=== PATIENT | male | born 1960 | race Caucasian/White ===

== ENCOUNTER 2022-12-27 20:11 | Emergency (ER) | payer OTHER ==
--- NOTE | 2022-12-27 20:45 | ED Physician Documentation ---
PD HPI CHEST PAIN - Stated complaint Stated Complaint: IRREGULAR HR - Chief complaint Chief Complaint: Cardiac - History obtained from History obtained from: Patient, Family () - History of Present Illness Timing - onset: Enter time (1931), Today Timing - onset during: Rest (at computer) Timing - duration: Minutes Timing - details: Abrupt onset, Still present Quality: Aching Location: Left shoulder/arm Radiation: No: Jaw, Neck, Back, Abdominal, Left upper extremity, Right upper extremity Improved by: Nothing Worsened by: Palpation Associated symptoms: Shortness of air, Diaphoresis, Nausea, Palpitations. 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 He states he developed this pain subsequently developed some diaphoresis and nausea did not felt well and consulted his . She came and listened to his heart and stated that she felt he had a third sound and recommended he come to the emergency department. The patient has a family history of early coronary disease with his father having a heart attack at 63. The patient has not seen a physician in over 3 years is not on any medications denies having any history of diabetes. He does have some problem with his left shoulder with pain when he lays on it at night. He believes he has been adequately hydrated and indicates that he mostly drinks coffee during the day. He has never had echocardiogram or stress test done. 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 He believes he has exertional dyspnea that has worsened over the past year. Review of Systems Constitutional: reports: Sweats. denies: Fever, Chills, Myalgias, Fatigue Eyes: denies: Decreased vision Nose: denies: Congestion Throat: denies: Sore throat Cardiac: reports: Palpitations. denies: Chest pain / pressure, Pedal edema, Calf pain Respiratory: reports: Dyspnea. denies: Cough, Wheezing GI: denies: Abdominal Pain, Nausea, Vomiting, Constipation, Diarrhea : denies: Dysuria, Frequency Skin: denies: Rash Musculoskeletal: reports: Extremity pain, Joint pain (left shoulder hurts at night and randomly). denies: Neck pain, Back pain PD PAST MEDICAL HISTORY - Past Medical History Psych: Depression - Past Surgical History Past Surgical History: No - Present Medications Home Medications: Ambulatory Orders Medication Instructions Recorded Confirmed Melatonin [Melatoninmax] 10 mg PO HS PRN 12/27/22 12/27/22 - Allergies Allergies/Adverse Reactions: Allergies Allergy/AdvReac Type Severity Reaction Status Date / Time bacitracin Allergy Rash Verified 12/27/22 20:18 [From Neosporin ([id number])] bacitracin zinc * Allergy Rash Verified 12/27/22 20:18 [From Neosporin ([id number])] neomycin sulfate * Allergy Rash Verified 12/27/22 20:18 [From Neosporin ([id number])] polymyxin B Allergy Rash Verified 12/27/22 20:18 [From Neosporin ([id number])] - Social History Does the pt smoke?: No Smoking Status: Never smoker Does the pt drink ETOH?: Yes Does the pt have substance abuse?: No PD ED PE NORMAL - Vitals Vital signs reviewed: Yes (hypertensive ) - General General: Alert and oriented X 3, No acute distress, Well developed/nourished - HEENT HEENT: Atraumatic, PERRL, EOMI - Neck Neck: Supple, no meningeal sign, No bony TTP - Cardiac Cardiac: RRR, No murmur - Respiratory Respiratory: No respiratory distress, Clear bilaterally - Abdomen Abdomen: Soft, Non tender - Back Back: No CVA TTP, No spinal TTP - Derm Derm: Normal color, Warm and dry, No rash - Extremities Extremities: No deformity, Normal ROM s pain, No edema - Neuro Neuro: Alert and oriented X 3, billing analyst 2-12 intact, No motor deficit, No sensory deficit, Normal speech Eye Opening: Spontaneous Motor: Obeys Commands Verbal: Oriented GCS Score: 15 - Psych Psych: Normal mood, Normal affect Results - Vitals Vitals: Vital Signs - 24 hr 12/27/22 12/27/22 12/27/22 20:15 21:20 21:41 Temperature 36.5 C 36.5 C 36.5 C Heart Rate 93 82 76 Respiratory 16 14 23 Rate Blood Pressure 186/117 H 175/111 H 173/102 H O2 Saturation 95 97 99 12/27/22 12/27/22 12/27/22 22:00 22:30 23:28 Temperature Heart Rate 78 80 77 Respiratory 20 20 16 Rate Blood Pressure 175/120 H 164/116 H 157/102 H O2 Saturation 99 98 96 Oxygen O2 Source Room air - EKG (time done) 2024 EKG releavant findings:: EKG personally interpreted by author of this note. Relevant findings are: Rate: Rate (enter#) (94) Rhythm: NSR, LAE Intervals: Other (early transition) QRS: LVH Compare to prior EKG: Changed from prior EKG (SPT 12-29-2014 prolonged QT has resolved. LVH has developed. ) Computer interpretation: Agree with computer - Labs Labs: Laboratory Tests 12/27/22 12/27/22 12/27/22 20:33 20:33 20:38 WBC 9.0 RBC 5.12 Hgb 15.5 Hct 45.5 MCV 88.9 MCH 30.3 MCHC 34.1 RDW 12.4 Plt Count 201 MPV 11.1 Neut # (Auto) 5.4 Lymph # (Auto) 2.7 Dixie # (Auto) 0.6 Eos # (Auto) 0.3 Baso # (Auto) 0.1 Absolute Nucleated RBC 0.00 Nucleated RBC % 0.0 D-Dimer < 200.0 L Sodium 137 Potassium 4.3 Chloride 105 Carbon Dioxide 26 Anion Gap 6.0 BUN 14 Creatinine 1.0 Estimated GFR (MDRD) 75 L Glucose 98 Calcium 9.2 Total Bilirubin 0.7 AST 26 ALT 30 Alkaline Phosphatase 77 Troponin I High Sens 54.6 H* Total Protein 7.2 Albumin 4.3 Globulin 2.9 Albumin/Globulin Ratio 1.5 Lipase 41 - Rads (name of study) chest Relevant Findings:: Prelim report reviewed (Impression: No acute cardiopulmonary disease.), EMP independent interpretation of test Procedures - IVC sono (time) 2039 Bedside IVC sono: IVC measures (cm) (1.14), IVC collapsed c insp (cm) (complete), Dehydration (est 1+ liter deficit) PD Medical Decision Making - ED course Complexity details: reviewed old records, reviewed results, re-evaluated patient, considered differential, d/w patient, d/w family, d/w qa consultant (Dr. Georges the hospitalist at [facility] excepted the patient in transfer.) Reviewed Lab Results: We reviewed a complete blood count showing a normal white blood cell count normal hemoglobin hematocrit and platelets a D-dimer was negative the chemistries showed normal electrolytes normal kidney and liver function and the high-sensitivity troponin was elevated at 54.6. My interpretation of these benign-appearing laboratory results with the exception of the elevated sensitive troponin is: the patient has had an NSTEMI. ED course: 62-year-old Champ Moreira presented to the emergency department today with left shoulder pain and a nonischemic appearing electrocardiogram. He has a story compelling for coronary disease with a family history positive for early coronary disease, a story and himself of progressive exertional dyspnea. On physical examination he was found to be dehydrated on interrogation of the inferior vena cava cava with POCUS. I suspect this patient's dehydration has uncovered his lesion. We were able to reach out to our [facility] and found that [facility] has a bed available and I was able to consult with Dr. Goodwin who accepts the patient in transfer. Here in the emergency department the patient is treated with 300 mg of Plavix orally he is already taken aspirin orally he is given 5 mg of metoprolol intravenously and started on a heparin drip after bolus. Departure - Departure Disposition: 02 Transfer Acute Care Hosp Clinical Impression: NSTEMI (non-ST elevated myocardial infarction), Dehydration Hypertension Qualifiers: Hypertension type: unspecified Qualified Code(s): I10 - Essential (primary) hypertension Forms: PCP List Discharge Date/Time: 12/27/22 23:24
[2022-12-27] MEDS ORDERED: SODIUM CHLORIDE 0.9% 1,000 ML IV STA (20:49)
[2022-12-27 20:51] LABS: BASOPHILS # (AUTO) 0.1 10^3/uL (0.0-0.1); BASOPHILS % (AUTO) 0.7 %; EOSINOPHILS # (AUTO) 0.3 10^3/uL (0.0-0.7); EOSINOPHILS % (AUTO) 3.2 %; HCT - HEMATOCRIT 45.5 % (42.0-52.0); HGB - HEMOGLOBIN 15.5 g/dL (14.0-18.0); LYMPHOCYTES # (AUTO) 2.7 10^3/uL (1.5-3.5); LYMPHOCYTES % (AUTO) 29.9 %; MEAN CORPUSCULAR HEMOGLOBIN 30.3 pg (27.0-31.0); MEAN CORPUSCULAR HGB CONC 34.1 g/dL (32.0-36.0); MEAN CORPUSCULAR VOLUME 88.9 fL (80.0-94.0); MEAN PLATELET VOLUME 11.1 fL (7.4-11.4); MONOCYTES # (AUTO) 0.6 10^3/uL (0.0-1.0); MONOCYTES % (AUTO) 6.4 %; NEUTROPHILS # (AUTO) 5.4 10^3/uL (1.5-6.6); NEUTROPHILS % (AUTO) 59.4 %; PLT - PLATELET COUNT 201 10^3/uL (130-450); RED BLOOD COUNT 5.12 10^6/uL (4.70-6.10); RED CELL DISTRIBUTION WIDTH 12.4 % (12.0-15.0)
[2022-12-27 21:11] LABS: ALBUMIN 4.3 g/dL (3.2-5.5); ALBUMIN/GLOBULIN RATIO 1.5 (1.0-2.2); BILIRUBIN,TOTAL 0.7 mg/dL (0.2-1.0); CALCIUM 9.2 mg/dL (8.5-10.3); POTASSIUM 4.3 mmol/L (3.5-5.0); TOTAL PROTEIN 7.2 g/dL (6.7-8.2)
[2022-12-27 21:14] LABS: TROPONIN I HIGH SENSITIVITY 54.6 ng/L (2.3-19.7)
[2022-12-27] MEDS ORDERED: CLOPIDOGREL 300 MG TABLET PO STA (21:19)
[2022-12-27] MEDS ORDERED: METOPROLOL 5 MG/5 ML VIAL IVP STA (21:19)
--- NOTE | 2022-12-27 21:28 | XRAY Report ---
PROCEDURE: Chest 1 View X-Ray INDICATIONS: Chest pain TECHNIQUE: One view of the chest was acquired. COMPARISON: None. FINDINGS: Surgical changes and devices: None. Lungs and pleura: No pleural effusions or pneumothorax. Lungs are clear. Mediastinum: Mediastinal contours appear normal. Heart size is normal. Bones and chest wall: No suspicious bony lesions. Overlying soft tissues appear unremarkable. IMPRESSION: No acute cardiopulmonary disease. Reviewed by: Gil Cortez MD on 12/27/2022 9:27 PM PDT Approved by: Gil Cortez MD on 12/27/2022 9:27 PM PDT Station ID: [id number]
[2022-12-27] MEDS ORDERED: HEPARIN 5,000 UNIT/ML VIAL ONE (21:33)
[2022-12-27] MEDS ORDERED: HEPARIN 25000UNITS/500ML (D5W) 25,000 UNIT/500 ML BAG IV ONE (21:35)
[2022-12-27] MEDS ORDERED: HEPARIN 25000UNITS/500ML (D5W) 25,000 UNIT/500 ML BAG IV SCH (22:00)
[2022-12-27 23:32] VITALS: BP 157/102; O2SAT 96
== END 2022-12-27 23:24 | disposition short-term general hospital (02) ==
LOC: ED 20:11
DX: I21.4 Non-ST elevation (NSTEMI) myocardial infarction (principal); E86.0 Dehydration; I10 Essential (primary) hypertension
CPT/HCPCS: 36415; 71045; 80053; 83690; 84484; 85025; 85379; 93005; 96361; 96374; 96375; 99285; A9270

== ENCOUNTER 2022-12-27 23:27 | Outpatient (CLI) | payer OTHER | END 2022-12-27 23:59 | disposition short-term general hospital (02) | LOC: EMS 23:27 | PROVIDERS: ATTEND Emergency Medicine | DX: I21.4 Non-ST elevation (NSTEMI) myocardial infarction (principal) | CPT/HCPCS: A0425; A0426 ==